=== PATIENT | male | born 1985 | race Caucasian/White ===

== ENCOUNTER 2019-07-12 08:04 | Emergency (ER) | payer SELFPAY | END 2019-07-12 09:00 | disposition left against medical advice (07) | LOC: ER 08:04 | DX: Z53.21 Procedure and treatment not carried out due to patient leaving prior to being seen by health care provider (principal) ==

== ENCOUNTER 2020-01-11 20:49 | Emergency (ER) | payer SELFPAY ==
[2020-01-11 21:11] VITALS: BP 99/44
[2020-01-11] MEDS ORDERED: VANCOMYCIN HCL INJ 1000 MG VIAL IV ONE (22:41)
[2020-01-11] MEDS ORDERED: PIPERACILLIN/TAZOBACTAM 4.5 GM VIAL IV ONE (22:41)
[2020-01-11] MEDS ORDERED: NORMAL SALINE IV ONE (22:41)
--- NOTE | 2020-01-11 22:52 | ER Document Report ---
ED Medical Screen (RME) - General Chief Complaint: Abscess Stated Complaint: RIGHT ARM PROBLEM Time Seen by Provider: 01/11/20 22:40 Primary Care Provider: PETE NORTON [Primary Care Provider] - Follow up as needed Mode of Arrival: Ambulatory Information source: Patient Notes: Patient is a 34-year-old male comes emergency room complaining of an abscess to his left arm. Patient at openly admits that he is a heroin IV drug user. He does have track powell on the right arm leading to an area of abscess just above the antecubital. The entire arm though is swollen warm and erythematous. Patient does have cap refill in the nailbeds of the fingers at this time and does have a good pulse on the ulnar and radial aspects. Patient comes in with abnormal vital signs with 130+ heart rate, 100.9 temp, and blood pressure 80 systolic. Physical examination shows him to be a well-nourished well-developed 34-year-old who appears somewhat ill appearing. Lungs: Auscultation of his lungs show he has bilateral breath sounds decreased throughout with faint end expiratory wheeze heard bilaterally. Scattered rhonchi possible in the upper right lobe. And no rales. Cardiac shows a tachycardic rate at 138 bpm. Abdomen: Bowel sounds present in 4 quads nontender to palpate. Skin as stated patient has a large abscess on his right antecubital area. He has good cap refill in the nailbeds of the fingers at this time. He has circumferential swelling however of the forearm to the antecubital area. I have greeted and performed a rapid initial assessment of this patient. A comprehensive ED assessment evaluation of the patient, analysis and test results and completion of the medical decision-making process will be conducted by an additional ED provider. TRAVEL OUTSIDE OF THE [place] IN LAST 30 DAYS: No - Related Data Allergies/Adverse Reactions: No Known Allergies Allergy (Verified 01/11/20 22:35) Past Medical History - Social History Frequency of alcohol use: None Drug Abuse: Heroin Physical Exam - Vital signs Vitals: Temp Pulse Resp BP Pulse Ox 100.5 F H 135 H 16 99/44 L 96 01/11/20 21:07 01/11/20 21:07 01/11/20 21:07 01/11/20 21:07 01/11/20 21:07 Course - Vital Signs Vital signs: Temp Pulse Resp BP Pulse Ox 100.5 F H 135 H 16 99/44 L 96 01/11/20 22:36 01/11/20 21:07 01/11/20 21:07 01/11/20 21:07 01/11/20 21:07 Doctor's Discharge - Discharge Referrals: LOCALMD,NO [Primary Care Provider] - Follow up as needed
[2020-01-11 23:24] LABS: ABSOLUTE LYMPHOCYTES (AUTO) 1.7 10^3/uL (0.5-4.7); ABSOLUTE MONOCYTES (AUTO) 1.7 10^3/uL (0.1-1.4); ABSOLUTE NEUT (AUTO) 12.4 10^3/uL (1.7-8.2); BASOPHILS % (AUTO) 0.2 % (0-2); EOSINOPHILS % (AUTO) 0.1 % (0-6); HEMATOCRIT 38.9 % (37.9-51.0); HEMOGLOBIN 13.5 g/dL (13.5-17.0); MEAN CORPUSCULAR HEMOGLOBIN 28.5 pg (27.0-33.4); MEAN CORPUSCULAR HGB CONC 34.8 g/dL (32.0-36.0); MEAN CORPUSCULAR VOLUME 82 fl (80-97); MONOCYTES % (AUTO) 10.4 % (3-13); PLATELET COUNT 257 10^3/uL (150-450); RED BLOOD COUNT 4.75 10^6/uL (4.35-5.55); SEGMENTED NEUTROPHILS % (AUTO) 78.3 % (42-78); TOTAL CELLS COUNTED % (AUTO) 100 %; WHITE BLOOD COUNT 15.9 10^3/uL (4.0-10.5)
--- NOTE | 2020-01-11 23:25 | RADIOLOGY REPORT (SQ) ---
EXAM DESCRIPTION: XR CHEST 1 VIEW COMPLETED DATE/TME: 01/11/2020 22:42 CLINICAL HISTORY: Fever COMPARISON: None. FINDINGS: Single frontal view of the chest. Cardiomediastinal silhouette: Normal size and contour. Lungs: No consolidation, pneumothorax, or pleural effusion. Bones: No acute osseous abnormality. Leads overlie the chest. Upper abdomen: No abnormality identified. IMPRESSION: 1. No acute pulmonary process identified.
[2020-01-11 23:28] LABS: VENOUS BLOOD BASE EXCESS 5.5 mmol/L; VENOUS BLOOD HCO3 31.9 mmol/L (20-32); VENOUS BLOOD PCO2 53.1 mmHg (35-63); VENOUS BLOOD PH 7.4 (7.30-7.42)
[2020-01-11 23:29] LABS: INTERNATIONAL RATION (INR) 1.13; PROTHROMBIN TIME 14.6 SEC (11.4-15.4)
[2020-01-11 23:40] LABS: ALBUMIN 3.9 g/dL (3.5-5.0); ALKALINE PHOSPHATASE 64 U/L (38-126); ANION GAP 8 (5-19); ASPARTATE AMINO TRANSFERASE 32 U/L (17-59); BILIRUBIN,TOTAL 0.6 mg/dL (0.2-1.3); BLOOD UREA NITROGEN 9 mg/dL (7-20); CALCIUM 9.8 mg/dL (8.4-10.2); CARBON DIOXIDE 31 mmol/L (22-30); CHLORIDE 93 mmol/L (98-107); GLUCOSE 109 mg/dL (75-110); POTASSIUM 3.9 mmol/L (3.6-5.0); TOTAL PROTEIN 7.4 g/dL (6.3-8.2)
--- NOTE | 2020-01-11 23:54 | ER Document Report ---
Entered by CATALINA WHITFIELD SCRIBE 01/11/20 2318 Acting as scribe for:LAZARO VELASCO IV, MD ED General - General Chief Complaint: Abscess Stated Complaint: RIGHT ARM PROBLEM Time Seen by Provider: 01/11/20 22:40 Primary Care Provider: PETE NORTON [NO MEGHA MD] - Follow up as needed Mode of Arrival: Ambulatory Information source: Patient Notes: This 34 year old male patient with a history of IV drug abuse presents to the ED today with complaints of an abscess to his right forearm. Patient states that the abscess has been there for the past couple of days. He denies any drainage or fever. He reports that he uses heroin. TRAVEL OUTSIDE OF THE [place] IN LAST 30 DAYS: No - Related Data Allergies/Adverse Reactions: No Known Allergies Allergy (Verified 01/11/20 22:35) Past Medical History - General Information source: Patient - Social History Smoking Status: Current Every Day Smoker Cigarette use (# per day): Yes Chew tobacco use (# tins/day): No Smoking Education Provided: No Frequency of alcohol use: None Drug Abuse: Heroin Family History: Reviewed & Not Pertinent Patient has suicidal ideation: No Patient has homicidal ideation: No Review of Systems - Review of Systems Constitutional: See HPI. denies: Fever EENT: No symptoms reported Cardiovascular: No symptoms reported Respiratory: No symptoms reported Gastrointestinal: No symptoms reported Genitourinary: No symptoms reported Male Genitourinary: No symptoms reported Musculoskeletal: No symptoms reported Skin: See HPI, Other - Abscess Hematologic/Lymphatic: No symptoms reported Neurological/Psychological: No symptoms reported -: Yes All other systems reviewed and negative Physical Exam - Vital signs Vitals: Temp Pulse Resp BP Pulse Ox 100.5 F H 135 H 16 99/44 L 96 01/11/20 21:07 01/11/20 21:07 01/11/20 21:07 01/11/20 21:07 01/11/20 21:07 - General General appearance: Alert In distress: None - HEENT Head: Normocephalic, Atraumatic Eyes: Normal Pupils: PERRL - Cardiovascular Rhythm: Regular, Tachycardia Heart sounds: Normal auscultation Murmur: No Friction rub: No Gallop: None auscultated - Abdominal Inspection: Normal Distension: No distension Bowel sounds: Normal Tenderness: Nontender - Abdomen soft Organomegaly: No organomegaly - Back Back: Normal, Nontender - Extremities General lower extremity: Normal inspection Forearm: Tender - Right forearm, Other - Area of swelling that is erythematous and fluctuant - Neurological Neuro grossly intact: Yes - Psychological Associated symptoms: Normal affect, Normal mood - Skin Skin irregularity: other - 3 cm in diameter area of swelling that is tender, erythematous, and fluctuant to right forearm with surrounding erythema Course - Re-evaluation Re-evalutation: 01/12/20 01:31 Results of ED MSE discussed with patient. Patient informed that this MD would be consulting the surgeon rehabilitation tech. Patient has no questions at this time. 01/12/20 05:41 Patient's nurse informed this MD sometime around 2:00 AM that the patient left AGAINST MEDICAL ADVICE. This MD made Dr. Ashton aware that the patient left AMA. - Vital Signs Vital signs: Temp Pulse Resp BP Pulse Ox 100.5 F H 135 H 16 99/44 L 96 01/11/20 22:36 01/11/20 21:07 01/11/20 21:07 01/11/20 21:07 01/11/20 21:07 - Laboratory Result Diagrams: 01/11/20 23:11 01/11/20 23:11 Laboratory results interpreted by me: 01/11/20 01/11/20 01/12/20 23:11 23:11 00:21 WBC 15.9 H Lymph % (Auto) 11.0 L Absolute Neuts (auto) 12.4 H Absolute Monos (auto) 1.7 H Seg Neutrophils % 78.3 H Sodium 132.3 L Chloride 93 L Carbon Dioxide 31 H Urine Protein 30 H Urine Urobilinogen 4.0 H - Diagnostic Test Radiology reviewed: Reports reviewed - Consults dr. ashton Time consulted: 01:30 - Dr. Ashton agreed to evaluate the patient Reason for consultation: 01/12/20 01:33 Complex right forearm abscess and cellulitis Consulted provider: will come to ER Discharge - Discharge Clinical Impression: Abscess of right forearm, Cellulitis of right upper extremity Disposition: AGAINST MEDICAL ADVICE Referrals: LOCALMD,NO [NO LOCAL MD] - Follow up as needed I personally performed the services described in the documentation, reviewed and edited the documentation which was dictated to the scribe in my presence, and it accurately records my words and actions.
--- NOTE | 2020-01-12 01:07 | RADIOLOGY REPORT (SQ) ---
EXAM DESCRIPTION: Soft tissue ultrasound CLINICAL HISTORY: 34 years Male, right forearm swelling erythema. COMPARISON: None. TECHNIQUE: Using a high frequency linear array transducer the area of clinical concern was evaluated. Color flow imaging was also performed. FINDINGS: In the area of clinical concern is a complex hypoechoic mass measuring 3.3 x 2.1 x 2.3 cm. This extends deep to the forearm muscles. There is blood flow seen adjacent to this but not within it. There are punctate areas of increased echogenicity which shadow which may represent air within the collection. Findings are concerning for deep space abscess. IMPRESSION: Complex predominantly hypoechoic fluid collection in the area of clinical concern which extends into the deep space of the forearm and is concerning for abscess. The primary collection measures 3.3 x 1.3 x 2.3 cm and there is a deeper collection which is 1.5 x 0.3 cm.
[2020-01-12 01:12] LABS: APPEARANCE,URINE CLEAR; BILIRUBIN,URINE NEGATIVE (NEGATIVE); COLOR,URINE YELLOW; GLUCOSE, URINE NEGATIVE (NEGATIVE); KETONES,URINE NEGATIVE (NEGATIVE); PROTEIN,URINE 30 mg/dL (NEGATIVE); URINE SPECIFIC GRAVITY 1.019
[2020-01-12] MEDS ORDERED: DEXTROSE 5%-LACTATED RINGERS 1,000 ML IV PRN (01:30)
[2020-01-12] MEDS ORDERED: ONDANSETRON HCL INJ/PF 4 MG/2 ML SDV IV PRN (01:30)
[2020-01-12] MEDS ORDERED: MORPHINE SULFATE 10 MG/ML INJ IV PRN (01:30)
[2020-01-12] MEDS ORDERED: VANCOMYCIN HCL 0 MG in DEXTROSE 5%-WATER 250 ML IV NR (01:45)
[2020-01-12] MEDS ORDERED: PIPERACILLIN/TAZOBACTAM 3.375 GM VIAL IV PRN (01:54)
[2020-01-12 02:14] LABS: URINE AMPHETAMINES SCREEN NEGATIVE; URINE BARBITURATES SCREEN NEGATIVE; URINE BENZODIAZEPINES SCREEN NEGATIVE; URINE COCAINE SCREEN NEGATIVE; URINE PHENCYCLIDINE SCREEN NEGATIVE
[2020-01-12 02:17] LABS: URINE MARIJUANA (THC) SCREEN UNCONFIRMED POSITIVE; URINE METHADONE SCREEN UNCONFIRMED POSITIVE
[2020-01-12] MEDS ORDERED: PIPERACILLIN SODIUM/TAZOBACTAM 3.375 GM in NORMAL SALINE 100 ML IV SCH (06:00)
[2020-01-12] MEDS ORDERED: KETOROLAC TROMETHAMINE INJ/PF 30 MG/1 ML SDV IV SCH (06:00)
[2020-01-12] MEDS ORDERED: ACETAMINOPHEN 1,000 MG/100 ML RTUPB IV SCH (06:00)
--- NOTE | 2020-01-12 06:25 | EKG REPORT ---
SEVERITY:- BORDERLINE ECG - SINUS RHYTHM SHORT MI INTERVAL, ACCELERATED AV CONDUCTION : Confirmed by: Jarret Reed MD 12-Jan-2020 06:24:56
[2020-01-12] MEDS ORDERED: FAMOTIDINE INJ/PF 20 MG/2 ML SDV IV SCH (10:00)
== END 2020-01-12 02:40 | disposition left against medical advice (07) ==
LOC: ER 20:49 → EH 01-12 01:42 → UNDOADMOB 01-12 01:42 → ER 01-12 02:40
DX: L02.413 Cutaneous abscess of right upper limb (principal); L03.113 Cellulitis of right upper limb; F11.10 Opioid abuse, uncomplicated; F17.210 Nicotine dependence, cigarettes, uncomplicated; Z53.29 Procedure and treatment not carried out because of patient's decision for other reasons
CPT/HCPCS: 93005; 36415; 87040; 83605; 85025; 85610; 80053; 81001; 80307; 82803; 71045; 76881; 93010; J7030; J3370; J2543; 96361; 96365; 99284